=== PATIENT | female | born 1955 | race Caucasian/White ===

== ENCOUNTER 2017-10-11 12:17 | Emergency (ER) | payer OTHER ==
[~2017-10-11] VITALS: Ht 149.9 cm; Wt 79.5 kg
[~2017-10-11 12:17] MED LIST: ACEBUTOLOL HYD200 MG PO; ACEBUTOLOL PO; ADVAIR 250/28 DISKUS IH; ALAVERT10 M1 PO; ASPIR-LOW81 MG PO; ASPIRIN E.C. 8181 MG PO; CLARITIN 1010 MG/TAB PO; COMBIVENT INH14.7 GM IH; DAILY MULTIPLE1 T19 PO; DYAZIDE 25 MG-31 CAP PO; FISH OIL CONC1000 MG PO; FLONASE NASAL S16 GM NS; FORTAMET500 MG PO; GEMCOR600 MG PO; GLUCOPHAGE500 MG/TAB PO; GLYBURIDE MICRON3 MG PO; IRON SUPPLEMENT PO; JANUVIA50 MG; JANUVIA50 MG PO; K-DUR 10 MEQ T10 MEQ PO; KLOR-CON 1010 MEQ PO; LIPITOR20 MG PO; LOPID 600M600 MG/TAB PO; MVI; NORCO 325 MG-51 TAB PO; NORVASC 10MG10 MG PO; NORVASC10 MG PO; OMEGA 31000 MG PO; PREMARIN 0.60.625 MG PO; PRILOSEC 20MG20 MG PO; PROAIR HFA0.09 MG/AC IH; RT ADVAIR 228 DISKUS IH; SINGULAIR 110 MG/TAB PO; SINGULAIR10 MG PO; TRIAMTERENE AND1 TA1 PO; VITAMIN D32000 IU PO
[2017-10-11 12:19] VITALS: TEMP 98.8
[2017-10-11] MEDS ORDERED: MASON NATURAL2000 IU (12:31)
[2017-10-11] MEDS ORDERED: AMOXICILLIN 8751 TAB PO (12:59)
[2017-10-11 13:23] LABS: BASO % 0.4 % (0.0-2.0); EOS # 0.3 (0.0-0.7); EOS % 2.4 % (0-4.0); GRAN # 7.3 (1.4-6.5); GRAN % 65.9 % (42.2-75.2); HEMATOCRIT 40.4 % (37.0-47.0); HEMOGLOBIN 13.3 g/dl (12.5-16.0); LYMPH # 2.5 (1.2-3.4); LYMPH % 22.6 % (20.0-51.0); MEAN CELL VOLUME 91 fl (80.0-100.0); MEAN CORPUSCULAR HEMOGLOBIN 30 pg (27.0-31.0); MEAN CORPUSCULAR HGB CONC 33 g/dl (33.0-37.0); MEAN PLATELET VOLUME 10.8 fl (7.4-10.4); MONO # 0.9 (0.1-0.6); MONO % 8.4 % (1.7-9.3); PLATELET COUNT 284 K/mm3 (130-400); RED BLOOD COUNT 4.43 M/mm3 (4.10-5.30)
[2017-10-11 13:31] LABS: ADJUSTED CALCIUM 9.7 mg/dL (8.4-10.2); ALBUMIN 5.1 gm/dL (3.5-5.0); BILIRUBIN,TOTAL 0.5 mg/dL (0.0-1.0); CALCIUM 10.6 mg/dL (8.4-10.2); CREATININE, serum 0.62 mg/dL (0.52-1.25); POTASSIUM 4.5 mmol/L (3.4-5.0); TOTAL PROTEIN 8.4 gm/dL (6.4-8.2)
[2017-10-11] MEDS ORDERED: LEVAQUIN 750MG750 M1 PO (15:08)
[2017-10-11] MEDS ORDERED: VIGAMOX 0.5% 3 M3 ML OP (15:12)
[2017-10-11 15:26] VITALS: BP 168/101; PULSE 79
== END 2017-10-11 15:28 | disposition home or self-care (01) ==
LOC: COL.ER 12:17
PROVIDERS: Physician Assistant Medical
DX: H05.012 Cellulitis of left orbit (principal); H04.302 Unspecified dacryocystitis of left lacrimal passage; E11.9 Type 2 diabetes mellitus without complications; I10 Essential (primary) hypertension; Z79.84 Long term (current) use of oral hypoglycemic drugs; Z90.710 Acquired absence of both cervix and uterus
CPT/HCPCS: Q9967

== ENCOUNTER 2017-10-14 20:05 | Emergency (ER) | payer OTHER ==
[~2017-10-14] VITALS: Ht 149.9 cm; Wt 79.5 kg
[~2017-10-14 20:05] MED LIST changes: +AMOXICILLIN 8751 TAB PO; +LEVAQUIN 750MG750 M1 PO; +MASON NATURAL2000 IU; +VIGAMOX 0.5% 3 M3 ML OP
[2017-10-14 20:06] VITALS: BP 175/82; PULSE 93; TEMP 98
[2017-10-14] MEDS ORDERED: IRON TABLETS325 MG PO (20:37)
[2017-10-14] MEDS ORDERED: DOXYCYCLINE 10100 MG PO ×2 (21:58→21:59)
== END 2017-10-14 22:10 | disposition home or self-care (01) ==
LOC: COL.ER 20:05
DX: L03.213 Periorbital cellulitis (principal); H04.322 Acute dacryocystitis of left lacrimal passage; E11.9 Type 2 diabetes mellitus without complications; I10 Essential (primary) hypertension; Z79.84 Long term (current) use of oral hypoglycemic drugs